=== PATIENT | male | born 1960 | race Caucasian/White ===

== ENCOUNTER 2023-11-08 18:55 | Inpatient (IN) | payer OTHER ==
[2023-11-08 19:29] VITALS: BMI 27.6
[2023-11-08] MEDS ORDERED: ACETAMINOPHEN 325 MG TABLET (FP) PO PRN (21:52)
[2023-11-08] MEDS ORDERED: IBUPROFEN 400 MG TABLET (FP) PO PRN (21:52)
[2023-11-08] MEDS ORDERED: BISMUTH SUBSALICYLATE 524 MG/30 ML PO PRN (21:52)
[2023-11-08] MEDS ORDERED: LOPERAMIDE HCL 2 MG CAPSULE PO PRN (21:52)
[2023-11-08] MEDS ORDERED: ONDANSETRON *ODT* 4 MG TABLET SL PRN (21:52)
[2023-11-08] MEDS ORDERED: MAG HYDROX/AL HYDROX/SIMETH 30 ML UNIT-DOSE CUP PO PRN (21:52)
[2023-11-08] MEDS ORDERED: BENZONATATE 200 MG CAPSULE PO PRN (21:52)
[2023-11-08] MEDS ORDERED: BENZOCAINE/MENTHOL (CHLORASEPTIC ) LOZENGE MM PRN (21:52)
[2023-11-08] MEDS ORDERED: NICOTINE POLACRILEX 2 MG LOZENGE BC PRN (21:52)
[2023-11-08] MEDS ORDERED: P-EPHED 60MG/TRIPROLIDI 2.5MG TABLET PO PRN (21:52)
[2023-11-08] MEDS ORDERED: guaiFENesin 600 MG TABLET.ER (FP) PO PRN (21:52)
[2023-11-08] MEDS ORDERED: MAGNESIUM HYDROX 2400MG/30ML ORAL SUSPENSION 30 ML CUP PO PRN (21:52)
[2023-11-08] MEDS ORDERED: POLYETHYLENE GLYCOL (HEALTHYLAX) 3350 17 GM PACKET PO PRN (21:52)
[2023-11-08] MEDS ORDERED: chlordiazePOXIDE HCL 25 MG CAPSULE PO PRN (21:55)
[2023-11-08] MEDS: chlordiazePOXIDE HCL 25 MG CAPSULE PO SCH (22:49)
[2023-11-08] MEDS: IBUPROFEN 600 MG TABLET (FP) PO PRN (22:50)
[2023-11-08] MEDS: MELATONIN 5 MG TABLETS PO SCH (22:51)
[2023-11-08] MEDS: THIAMINE HCL 100 MG TABLET (FP) PO SCH (22:51)
[2023-11-09] MEDS: chlordiazePOXIDE HCL 25 MG CAPSULE PO SCH ×4 (05:19→22:19)
[2023-11-09] MEDS ORDERED: LORATADINE 10 MG TABLET PO SCH (10:00)
[2023-11-09] MEDS ORDERED: PRENATAL VITAMINS W/ FOLIC ACID TABLET (FP) PO SCH (10:00)
[2023-11-09] MEDS: IBUPROFEN 600 MG TABLET (FP) PO PRN ×2 (10:14→22:21)
[2023-11-09 11:19] LABS: HEMATOCRIT 38.9 % (35.4-49); HEMOGLOBIN 12.9 GM/dL (11.7-16.9); MCH 34.8 pg (25.7-33.7); MCHC 33.2 g/dl (32.0-35.9); MEAN CELL VOLUME 104.7 fl (80-96); MEAN PLT VOLUME 9.2 fl (7.5-11.1); PLATELET COUNT 237 10^3/uL (134-434); RBC 3.72 M/mm3 (4.00-5.60); RDW 14.8 % (11.9-15.9); WHITE BLOOD COUNT 8.7 K/mm3 (4.0-10.0)
[2023-11-09 11:42] LABS: POTASSIUM 3.9 mmol/L (3.5-5.1)
[2023-11-09 11:49] LABS: CALCIUM 8.6 mg/dL (8.5-10.1)
[2023-11-09 11:50] LABS: ALBUMIN 3.2 g/dl (3.4-5.0)
[2023-11-09 11:53] LABS: CREATININE 1.2 mg/dL (0.55-1.3)
[2023-11-09 11:55] LABS: BILIRUBIN,TOTAL 0.8 mg/dL (0.2-1); TOT PROT 6.2 g/dl (6.4-8.2)
[2023-11-09] MEDS: MELATONIN 5 MG TABLETS PO SCH (22:19)
[2023-11-09] MEDS: THIAMINE HCL 100 MG TABLET (FP) PO SCH (22:19)
[2023-11-10] MEDS ORDERED: chlordiazePOXIDE HCL 10 MG CAPSULE PO SCH (05:00)
[2023-11-10] MEDS: IBUPROFEN 600 MG TABLET (FP) PO PRN (05:43)
[2023-11-10 06:42] VITALS: BP 102/60; PULSE 62; RESP 17; TEMP 97.6
[2023-11-11] MEDS ORDERED: chlordiazePOXIDE HCL 10 MG CAPSULE PO SCH (05:00)
[2023-11-12] MEDS ORDERED: chlordiazePOXIDE HCL 10 MG CAPSULE PO ONE (05:00)
== END 2023-11-10 09:36 | disposition left against medical advice (07) | DRG 894 ==
LOC: YASAS 18:55 → Y6N 22:12
PROVIDERS: ADMIT Allergy & Immunology; ATTEND Allergy & Immunology
PROC: HZ2ZZZZ Detoxification Services for Substance Abuse Treatment (ICD-10-PCS; principal; 2023-11-08)
DX: F10.230 Alcohol dependence with withdrawal, uncomplicated (principal); F12.10 Cannabis abuse, uncomplicated; F17.210 Nicotine dependence, cigarettes, uncomplicated; E78.5 Hyperlipidemia, unspecified; Z91.011 Allergy to milk products
CPT/HCPCS: 0241U-QW; 36415; 80053; 85027; 86780